=== PATIENT | male | born 1980 | race Caucasian/White ===

== ENCOUNTER 2016-08-05 11:25 | Emergency (ER) | payer MEDICAID ==
[2016-08-05] MEDS ORDERED: SODIUM CHLORIDE 0.9% 1,000 ML ONE (12:52)
== END 2016-08-05 13:53 | disposition home or self-care (01) ==
LOC: ER 11:25
DX: R07.2 Precordial pain (principal); R07.89 Other chest pain; F15.10 Other stimulant abuse, uncomplicated
CPT/HCPCS: 36415; 71010; 80053; 80307; 81003; 82553; 84484; 85025; 85379; 85610; 85730; 93005; 96360